=== PATIENT | male | born 1960 | race Caucasian/White ===

== ENCOUNTER 2017-04-10 23:14 | Inpatient (IN) | payer OTHER ==
[~2017-04-10] VITALS: Ht 172.7 cm; Wt 71.7 kg
[~2017-04-10 23:14] MED LIST: Z.0.NO CURRENT MEDS
[2017-04-10 23:17] VITALS: BP 141/81; PULSE 99; RESP 18; TEMP 98.2; O2SAT 92
[2017-04-10 23:56] VITALS: BP 140/87; RESP 14; O2SAT 87
[2017-04-11] VITALS (14 sets, daily range): BP systolic 115–140; BP diastolic 63–87; PULSE 80–101; RESP 14–18; TEMP 96.6–98.8; O2SAT 87–100
[2017-04-11] MEDS ORDERED: SODIUM CHLORIDE 0.9% FLUSH 10 ML FLUSH IVF PRN
[2017-04-11] MEDS ORDERED: methylPREDNISolone SOD SUCC 125 MG/2 ML VIAL IVP ONE
[2017-04-11] MEDS: RESP: ALBUTEROL 2.5 MG/IPRATROPIUM 0.5 MG NEB (SCH) INH ×2 (00:04→00:05)
--- NOTE | 2017-04-11 00:08 | PD ---
HPI Chief Complaint: Respiratory Symptoms Time Seen by Provider: 23:53 Travel History International Travel<30 days: No Contact w/Intl Traveler<30days: No Traveled to known affect area: No History of Present Illness HPI The patient is a 56-year-old male who presents to the emergency department for shortness of breath. The patient states he developed shortness of breath approximate 4 hours prior to arrival. The patient does have a history of remote lung cancer, approximately 12 years ago, that was treated on the [facility]. The patient had a partial right upper lobectomy and port placement at that time. The patient states he continues to smoke 2 packs of cigarettes per day. The patient states he has been short of breath for 4 hours, has some left-sided chest tightness, audible wheezing, but denies any new or productive cough. He denies any history of pulmonary embolism or DVT. The patient is currently staying with his brother who lives in the local area. He does not have a local primary physician. The patient states they were going to place him on oxygen in the past, however, he does not have home O2 or portable O2 canister. PFSH Past Medical History Asthma: No Blood Disorders: No Anxiety: Yes Heart Rhythm Problems: No Cancer: Yes (2006-TOLD HAS TERMINAL SMALL CELL LUNG CANCER, BUT REFUSED TREATMENT. ) Cardiovascular Problems: Yes High Cholesterol: No Chest Pain: No Congestive Heart Failure: No COPD: Yes Diabetes: No Diminished Hearing: No Endocrine: No Genitourinary: No Immune Disorder: No Implanted Vascular Access Dvce: Yes (PORT RCW.) Neurologic: No Psychiatric: Yes Reproductive: No Respiratory: Yes Immunizations Current: No Sleep Apnea: No Thyroid Disease: No Influenza Vaccination: No Past Surgical History Body Medical Devices: PORT RIGHT UPPER CHEST Thoracic Surgery: Yes (RUL LOBECTOMY 2005) Other Surgery: Yes (R+ lung remove, Inf port R side ) Social History Alcohol Use: Yes (every day licor and beers) Tobacco Use: Yes Substance Use: No Allergies-Medications (Allergen,Severity, Reaction): Coded Allergies: penicillin G (Unverified Allergy, Mild, 04/10/17) Reported Meds & Prescriptions Reported Meds & Active Scripts Active Reported No Current Meds (Miscellaneous Medication) Misc Review of Systems Except as stated in HPI: all other systems reviewed are Neg General / Constitutional: No: Fever HENT: No: Headaches Cardiovascular: Positive: Chest Pain or Discomfort (left-sided chest tightness) Respiratory: Positive: Shortness of Breath, Wheezing Gastrointestinal: No: Nausea, Vomiting, Abdominal Pain Musculoskeletal: No: Edema Neurologic: No: Dizziness Physical Exam Narrative GENERAL: Awake, alert, nontoxic-appearing 56-year-old male who appears his stated age and is in no acute respiratory distress. SKIN: Focused skin assessment warm/dry. HEAD: Atraumatic. Normocephalic. EYES: Left pupil is 3 mm and reactive. Blind in the right eye. ENT: No nasal bleeding or discharge. Poor dentition. Breath smells of alcohol. NECK: Trachea midline. No JVD. CARDIOVASCULAR: Regular rate and rhythm. No murmur appreciated. Heart rate in the 90s. Port in place right chest wall. RESPIRATORY: Mild tachypnea with a respiratory rate of 22. Diffuse wheezing with crackles in the left base. GASTROINTESTINAL: Abdomen soft, non-tender, nondistended. No rebound tenderness. Back: Well-healed scar over the right scapula. MUSCULOSKELETAL: No obvious deformities. No clubbing. No cyanosis. No edema. NEUROLOGICAL: Awake and alert. No obvious cranial nerve deficits. Motor grossly within normal limits. Normal speech. PSYCHIATRIC: Appropriate mood and affect; insight and judgment normal. Data Data Last Documented VS Vital Signs Date Time Temp Pulse Resp B/P (MAP) Pulse Ox O2 Delivery O2 Flow Rate FiO2 04/11/17 01:42 83 18 122/73 (89) 94 Nasal Cannula 3.00 04/10/17 23:17 98.2 Orders Orders Complete Blood Count With Diff (04/10/17 23:57) Comprehensive Metabolic Panel (04/10/17 23:57) B-Type Natriuretic Peptide (04/10/17 23:57) Magnesium (Mg) (04/10/17 23:57) Ckmb (Isoenzyme) Profile (04/10/17 23:57) Troponin I (04/10/17 23:57) Iv Access Insert/Monitor (04/10/17 23:57) Electrocardiogram (04/10/17 23:57) Ecg Monitoring (04/10/17 23:57) Oximetry (04/10/17 23:57) Oxygen Administration (04/10/17 23:57) Chest, Single Ap (04/10/17 23:57) Sodium Chloride 0.9% Flush (Ns Flush) (04/11/17 00:00) Methylprednisolone So Succ Inj (Solumedr (04/11/17 00:00) Albuterol-Ipratropium Neb (Duoneb Neb) (04/11/17 00:00) CKMB (04/11/17 00:05) CKMB% (04/11/17 00:05) Azithromycin (Zithromax) (04/11/17 01:45) Admit Order (Ed Use Only) (04/11/17 01:54) Labs Laboratory Tests Test 04/11/17 00:05 White Blood Count 7.0 TH/MM3 Red Blood Count 4.59 MIL/MM3 Hemoglobin 14.3 GM/DL Hematocrit 42.6 % Mean Corpuscular Volume 93.0 FL Mean Corpuscular Hemoglobin 31.2 PG Mean Corpuscular Hemoglobin Concent 33.5 % Red Cell Distribution Width 14.4 % Platelet Count 156 TH/MM3 Mean Platelet Volume 8.2 FL Neutrophils (%) (Auto) 44.5 % Lymphocytes (%) (Auto) 42.9 % Monocytes (%) (Auto) 9.7 % Eosinophils (%) (Auto) 1.9 % Basophils (%) (Auto) 1.0 % Neutrophils # (Auto) 3.1 TH/MM3 Lymphocytes # (Auto) 3.0 TH/MM3 Monocytes # (Auto) 0.7 TH/MM3 Eosinophils # (Auto) 0.1 TH/MM3 Basophils # (Auto) 0.1 TH/MM3 CBC Comment DIFF FINAL Differential Comment Blood Urea Nitrogen 10 MG/DL Creatinine 0.83 MG/DL Random Glucose 101 MG/DL Total Protein 7.7 GM/DL Albumin 4.1 GM/DL Calcium Level 8.9 MG/DL Magnesium Level 1.8 MG/DL Alkaline Phosphatase 75 U/L Aspartate Amino Transf (AST/SGOT) 102 U/L Alanine Aminotransferase (ALT/SGPT) 91 U/L Total Bilirubin 0.3 MG/DL Sodium Level 146 MEQ/L Potassium Level 4.2 MEQ/L Chloride Level 107 MEQ/L Carbon Dioxide Level 28.7 MEQ/L Anion Gap 10 MEQ/L Estimat Glomerular Filtration Rate 96 ML/MIN Total Creatine Kinase 144 U/L Creatine Kinase MB 1.7 NG/ML Troponin I LESS THAN 0.02 NG/ML B-Type Natriuretic Peptide 12 PG/ML MDM Medical Decision Making Medical Screen Exam Complete: Yes Emergency Medical Condition: Yes Medical Record Reviewed: Yes Interpretation(s) EKG reveals normal sinus rhythm with a rate 87. Q wave noted in lead V1 and V2. Last Impressions Chest X-Ray 04/10/17 [id number] Signed Impressions: Service Date/Time: Tuesday, April 11, 2017 00:14 - CONCLUSION: Normal examination. Tiago Cat MD Laboratory Tests Test 04/11/17 00:05 White Blood Count 7.0 TH/MM3 Red Blood Count 4.59 MIL/MM3 Hemoglobin 14.3 GM/DL Hematocrit 42.6 % Mean Corpuscular Volume 93.0 FL Mean Corpuscular Hemoglobin 31.2 PG Mean Corpuscular Hemoglobin Concent 33.5 % Red Cell Distribution Width 14.4 % Platelet Count 156 TH/MM3 Mean Platelet Volume 8.2 FL Neutrophils (%) (Auto) 44.5 % Lymphocytes (%) (Auto) 42.9 % Monocytes (%) (Auto) 9.7 % Eosinophils (%) (Auto) 1.9 % Basophils (%) (Auto) 1.0 % Neutrophils # (Auto) 3.1 TH/MM3 Lymphocytes # (Auto) 3.0 TH/MM3 Monocytes # (Auto) 0.7 TH/MM3 Eosinophils # (Auto) 0.1 TH/MM3 Basophils # (Auto) 0.1 TH/MM3 CBC Comment DIFF FINAL Differential Comment Blood Urea Nitrogen 10 MG/DL Creatinine 0.83 MG/DL Random Glucose 101 MG/DL Total Protein 7.7 GM/DL Albumin 4.1 GM/DL Calcium Level 8.9 MG/DL Magnesium Level 1.8 MG/DL Alkaline Phosphatase 75 U/L Aspartate Amino Transf (AST/SGOT) 102 U/L Alanine Aminotransferase (ALT/SGPT) 91 U/L Total Bilirubin 0.3 MG/DL Sodium Level 146 MEQ/L Potassium Level 4.2 MEQ/L Chloride Level 107 MEQ/L Carbon Dioxide Level 28.7 MEQ/L Anion Gap 10 MEQ/L Estimat Glomerular Filtration Rate 96 ML/MIN Total Creatine Kinase 144 U/L Creatine Kinase MB 1.7 NG/ML Troponin I LESS THAN 0.02 NG/ML B-Type Natriuretic Peptide 12 PG/ML Differential Diagnosis Differential diagnosis includes COPD exacerbation, pneumonia, bronchitis, pleural effusion, pulmonary embolism, pericardial effusion, acute coronary syndrome, noncompliance. Narrative Course IV was established, labs are drawn and sent, and the patient was placed on cardiac telemetry monitoring and continuous pulse oximetry monitoring. The patient was noted to have an initial O2 saturation on room air of 86-87%. The patient was placed on oxygen via nasal cannula. The patient was administered Solu-Medrol 125 mg intravenously and duo nebs 3. Chest x-ray was obtained. EKG was ordered and interpreted. Chest x-rays unremarkable. Laboratory evaluation is essentially unremarkable except for mildly elevated AST and ALT. The patient continued to sat at 94% on 3 L, he did have mild improvement with DuoNeb's. The patient does not have a primary physician and was hypoxic, therefore, will be admitted for COPD exacerbation. The on-call medical team was paged for admission. Physician Communication Physician Communication The on-call medical service was paged for admission. I discussed the patient with Dr. Summers who agrees with admission. Diagnosis Primary Impression: COPD exacerbation Additional Impression: Hypoxia Admitting Information Admitting Physician Requests: Admit Condition: Stable Jonny Gomez MD Apr 11, 2017 00:08
[2017-04-11 00:16] LABS: AUTOMATED NEUTROPHIL # 3.1 TH/MM3 (1.8-7.7); BASOPHIL # 0.1 TH/MM3 (0-0.2); EOSINOPHIL # 0.1 TH/MM3 (0-0.4); EOSINOPHIL % 1.9 % (0.0-4.0); HEMATOCRIT 42.6 % (39.0-51.0); HEMO FLAGS DIFF FINAL; LYMPH % 42.9 % (9.0-44.0); MEAN CORPUSCULAR HEMOGLOBIN 31.2 PG (27.0-34.0); MEAN CORPUSCULAR HGB CONC 33.5 % (32.0-36.0); MONO % 9.7 % (0.0-8.0); NEUT % 44.5 % (16.0-70.0); PLATELET COUNT 156 TH/MM3 (150-450); RED BLOOD COUNT 4.59 MIL/MM3 (4.50-5.90); RED CELL DISTRIBUTION WIDTH 14.4 % (11.6-17.2)
--- NOTE | 2017-04-11 00:25 | RADRPT ---
EXAM DATE/TIME: 04/11/2017 00:14 [facility] COMPARISON: No previous studies available for comparison. INDICATIONS : Shortness of breath MEDICAL HISTORY : Chronic obstructive pulmonary disease. Carcinoma, squamous cell. SURGICAL HISTORY : Port placement, RUL lobectomy ENCOUNTER: Initial ACUITY: 1 day PAIN SCORE: 8/10 LOCATION: Bilateral chest FINDINGS: A single view of the chest demonstrates the lungs to be symmetrically aerated without evidence of mas s, infiltrate or effusion. Right subclavian central line is in good position. The cardiomediastina l contours are unremarkable. Osseous structures are intact. CONCLUSION: Normal examination. Tiago Cat MD on April 11, 2017 at 0:23 Board Certified Radiologist. This report was verified electronically.
[2017-04-11 00:32] LABS: ALT (GPT) 91 U/L (12-78); ANION GAP 10 MEQ/L (5-15); AST (GOT) 102 U/L (15-37); BICARBONATE 28.7 MEQ/L (21.0-32.0); BLOOD UREA NITROGEN 10 MG/DL (7-18); CHLORIDE 107 MEQ/L (98-107); GLOMERULAR FILTRATION RATE 96 ML/MIN (>89); MAGNESIUM 1.8 MG/DL (1.5-2.5); POTASSIUM 4.2 MEQ/L (3.5-5.1); SODIUM (NA) 146 MEQ/L (136-145)
[2017-04-11 00:36] LABS: ALKALINE PHOSPHATASE 75 U/L (45-117); CREATINE KINASE 144 U/L (39-308); TOTAL BILIRUBIN ADULT 0.3 MG/DL (0.2-1.0)
[2017-04-11 00:48] LABS: CKMB 1.7 NG/ML (0.5-3.6)
[2017-04-11] MEDS ORDERED: AZITHROMYCIN 250 MG TAB PO ONE (01:45)
[2017-04-11] MEDS ORDERED: NALOXONE HCL 0.4 MG/ML AMP IV PRN (02:00)
[2017-04-11] MEDS ORDERED: RESP: ALBUTEROL 2.5 MG/IPRATROPIUM 0.5 MG NEB (PRN) NEB (03:30)
[2017-04-11] MEDS: MORPHINE SULFATE 4 MG/ML INJ IV PUSH PRN ×2 (03:32→08:31)
[2017-04-11] MEDS: RESP: ALBUTEROL 2.5 MG/IPRATROPIUM 0.5 MG NEB (SCH) NEB ×4 (03:39→22:16)
[2017-04-11 07:26] LABS: CREATINE KINASE 119 U/L (39-308)
[2017-04-11] MEDS: methylPREDNISolone SOD SUCC 40 MG/1 ML VIAL IV PUSH SCH ×3 (08:30→23:04)
[2017-04-11] MEDS: SODIUM CHLORIDE 0.9% FLUSH 10 ML FLUSH IV FLUSH SCH ×2 (08:30→20:00)
[2017-04-11] MEDS ORDERED: LORazepam 2 MG/ML VIAL IV PUSH PRN ×2 (09:15)
[2017-04-11] MEDS ORDERED: cloNIDine HCL 0.1 MG TAB PO PRN (09:15)
[2017-04-11] MEDS ORDERED: FLUMAZENIL 0.5 MG/5 ML VIAL IV PUSH PRN (09:15)
[2017-04-11] MEDS: LORazepam 1 MG TAB PO PRN ×2 (09:39→17:43)
--- NOTE | 2017-04-11 10:02 | HHI.HP ---
[facility] Service [facility] Primary Care Physician Unknown Admission Diagnosis COPD exacerbation, hypoxia Diagnoses: Chief Complaint: Shortness of breath Travel History International Travel<30 Days: No Contact w/Intl Traveler <30 Da: No Traveled to Known Affected Are: No History of Present Illness Written by Tyron Gooden, acting as scribe for Dr. Allen on 04/11/17 at 10:02. 56-year-old male with past medical history of lung cancer status post partial lobectomy who presented for shortness of breath. The patient states that yesterday he had sudden onset of shortness of breath that persisted for about 4 hours which prompted him to come to the ED. He had associated chest pressure like a heavy feeling on his chest. Pain is left-sided, no radiation. He had associated sweating. The pain is improved with morphine. He has not had any recent prolonged immobilization or travel. He continues to have pain and difficulty breathing when he breathes deeply. He denies any heart disease. He states he had a stress test 4 months ago at [facility] and that was okay. He continues to smoke 2 packs per day. He drinks alcohol daily. He has a history of lung cancer in the past that he refused chemotherapy and radiation and was treated with partial right lobectomy. Review of Systems Except as stated in HPI: all other systems reviewed are Neg Past Family Social History Past Medical History History of lung cancer Past Surgical History Right upper lung lobectomy Head and facial surgery status post trauma Reported Medications None Allergies: Coded Allergies: penicillin G (Unverified Allergy, Mild, 04/10/17) Active Ordered Medications Current Medications Medications (Trade) Dose Ordered Sig/[place]ubna Route Start Time Stop Time Status Last Admin (NS Flush) 2 ml UNSCH PRN IV FLUSH 04/11/17 02:00 (NS Flush) 2 ml BID IV FLUSH 04/11/17 09:00 04/11/17 08:30 (Narcan Inj) 0.4 mg UNSCH PRN IV 04/11/17 02:00 (Morphine Inj) 2 mg Q3H PRN IV PUSH 04/11/17 03:30 04/11/17 08:31 (Duoneb Neb) 1 ampule Q6HR NEB NEB 04/11/17 04:00 04/11/17 10:19 (Duoneb Neb) 1 ampule Q2HR NEB PRN NEB 04/11/17 03:30 (SoluMEDROL INJ) 40 mg Q8HR IV PUSH 04/11/17 07:45 04/11/17 08:30 (Folate) 1 mg DAILY PO 04/12/17 09:00 04/17/17 08:59 (Vitamin B1) 100 mg DAILY PO 04/12/17 09:00 (Theragran M Tab) 1 tab DAILY PO 04/12/17 09:00 04/17/17 08:59 (Catapres) 0.1 mg Q6H PRN PO 04/11/17 09:15 (Romazicon Inj) 0.2 mg Q1M PRN IV PUSH 04/11/17 09:15 (Ativan) 1 mg Q4H PRN PO 04/11/17 09:15 04/11/17 09:39 (Ativan) 2 mg Q2H PRN PO 04/11/17 09:15 (Ativan Inj) 2 mg Q1H PRN IV PUSH 04/11/17 09:15 (Ativan Inj) 2 mg Q15M PRN IV PUSH 04/11/17 09:15 Family History Father had heart disease Social History Assessment 2 packs per day since age 15 Drinks a quart of liquor and a few beers daily Works as a captain waiter Physical Exam Vital Signs Vital Signs Date Time Temp Pulse Resp B/P (MAP) Pulse Ox O2 Delivery O2 Flow Rate FiO2 04/11/17 07:52 98.1 82 18 115/63 (80) 95 04/11/17 04:33 85 04/11/17 04:00 96.6 81 17 133/80 (97) 91 04/11/17 03:42 94 Nasal Cannula 3.00 04/11/17 03:40 18 04/11/17 02:37 94 Nasal Cannula 3.00 04/11/17 02:08 91 Nasal Cannula 4.00 04/11/17 01:42 83 18 122/73 (89) 94 Nasal Cannula 3.00 04/11/17 00:04 80 14 140/87 (104) 87 Nasal Cannula 04/11/17 00:04 Nasal Cannula 3.00 04/10/17 23:56 14 140/87 (104) 87 Room Air 04/10/17 23:17 98.2 99 18 141/81 (101) 92 Room Air Physical Exam GENERAL: Well-developed well-nourished. In no acute distress. SKIN: Warm and dry. No lesions noted. HEENT: Normocephalic. Right eye blindness. Mucous membranes pink and moist. CARDIOVASCULAR: Regular rate and rhythm. No murmur appreciated. RESPIRATORY: No accessory muscle use. Clear to auscultation. Left basilar rhonchi. Right upper lobe breath sounds diminished. GASTROINTESTINAL: Abdomen soft, non-tender, nondistended. Bowel sounds x4. MUSCULOSKELETAL: No obvious deformities. No clubbing or cyanosis. No edema. NEUROLOGICAL: Awake and alert. No focal neurological deficits. Moves upper and lower extremities spontaneously. Normal speech. Mildly tremulous. PSYCHIATRIC: Appropriate mood and affect; insight and judgment normal. Laboratory Laboratory Tests Test 04/11/17 00:05 04/11/17 06:10 White Blood Count 7.0 Red Blood Count 4.59 Hemoglobin 14.3 Hematocrit 42.6 Mean Corpuscular Volume 93.0 Mean Corpuscular Hemoglobin 31.2 Mean Corpuscular Hemoglobin Concent 33.5 Red Cell Distribution Width 14.4 Platelet Count 156 Mean Platelet Volume 8.2 Neutrophils (%) (Auto) 44.5 Lymphocytes (%) (Auto) 42.9 Monocytes (%) (Auto) 9.7 Eosinophils (%) (Auto) 1.9 Basophils (%) (Auto) 1.0 Neutrophils # (Auto) 3.1 Lymphocytes # (Auto) 3.0 Monocytes # (Auto) 0.7 Eosinophils # (Auto) 0.1 Basophils # (Auto) 0.1 CBC Comment DIFF FINAL Differential Comment Blood Urea Nitrogen 10 Creatinine 0.83 Random Glucose 101 Total Protein 7.7 Albumin 4.1 Calcium Level 8.9 Magnesium Level 1.8 Alkaline Phosphatase 75 Aspartate Amino Transf (AST/SGOT) 102 Alanine Aminotransferase (ALT/SGPT) 91 Total Bilirubin 0.3 Sodium Level 146 Potassium Level 4.2 Chloride Level 107 Carbon Dioxide Level 28.7 Anion Gap 10 Estimat Glomerular Filtration Rate 96 Total Creatine Kinase 144 119 Creatine Kinase MB 1.7 Troponin I LESS THAN 0.02 LESS THAN 0.02 B-Type Natriuretic Peptide 12 Result Diagram: 04/11/17 0005 04/11/17 0005 Imaging Last Impressions Chest X-Ray 04/10/17 [id number] Signed Impressions: Service Date/Time: Tuesday, April 11, 2017 00:14 - CONCLUSION: Normal examination. MD Katelynn Bearden VTE Risk Assessment Katelynn VTE Risk Assessment: Mod/High Risk (score >= 2) Caprini Risk Assessment Model Point Value = 1 Point Value = 2 Point Value = 3 Point Value = 5 Age 41-60 Minor surgery BMI > 25 kg/m2 Swollen legs Varicose veins or History of unexplained or recurrent spontaneous Oral contraceptives or hormone replacement Sepsis (< 1 month) Serious lung disease, including pneumonia (< 1 month) Abnormal pulmonary function Acute myocardial infarction Congestive heart failure (< 1 month) History of inflammatory bowel disease Medical patient at bed rest Age 61-74 Arthroscopic surgery Major open surgery (> 45 min) Laparoscopic surgery (> 45 min) Malignancy Confined to bed (> 72 hours) Immobilizing plaster cast Central venous access Age >= 75 History of VTE Family history of VTE Factor V Leiden Prothrombin [id number] Lupus anticoagulant Anticardiolipin antibodies Elevated serum homocysteine Heparin-induced thrombocytopenia Other congenital or acquired thrombophilia Stroke (< 1 month) Elective arthroplasty Hip, pelvis, or leg fracture Acute spinal cord injury (< 1 month) Prophylaxis Regimen Total Risk Factor Score Risk Level Prophylaxis Regimen 0-1 Low Early ambulation 2 Moderate Order ONE of the following: *Sequential Compression Device (SCD) *Heparin 5000 units SQ BID 3-4 Higher Order ONE of the following medications: *Heparin 5000 units SQ TID *Enoxaparin/Lovenox 40 mg SQ daily (WT < 150 kg, CrCl > 30 mL/min) *Enoxaparin/Lovenox 30 mg SQ daily (WT < 150 kg, CrCl > 10-29 mL/min) *Enoxaparin/Lovenox 30 mg SQ BID (WT < 150 kg, CrCl > 30 mL/min) AND/OR *Sequential Compression Device (SCD) 5 or more Highest Order ONE of the following medications: *Heparin 5000 units SQ TID (Preferred with Epidurals) *Enoxaparin/Lovenox 40 mg SQ daily (WT < 150 kg, CrCl > 30 mL/min) *Enoxaparin/Lovenox 30 mg SQ daily (WT < 150 kg, CrCl > 10-29 mL/min) *Enoxaparin/Lovenox 30 mg SQ BID (WT < 150 kg, CrCl > 30 mL/min) AND *Sequential Compression Device (SCD) Assessment and Plan Assessment and Plan 56-year-old male with past medical history of lung cancer status post partial lobectomy who presented for shortness of breath Chest pain/shortness of breath: Differential includes ACS, PE, COPD, recurrent cancer Reviewed: Troponin negative 2. EKG with NSR, nonspecific ST changes. Chest x- ray clear. BNP 12. -Check CT pulmonary angiogram -Continue to trend troponins -IV Solu-Medrol -Scheduled and as needed nebs -Supplemental O2 as needed -Counseled on tobacco cessation Alcohol abuse: Counseled extensively on cessation, no desire to quit. Mild elevation of AST and ALT likely secondary to EtOH abuse. -METHODIST JENNIE EDMUNDSON protocol. Thiamine, folate, multivitamins. DVT prophylaxis: Lovenox This note was transcribed by scribe [Giacomo Ackerman]. I, Dr. Yue Allen personally performed the history, physical exam, and medical decision making; and confirmed the accuracy of the information in the transcribed note. Authenticated by Dr. Yue Allen on 04/11/17 at 10:03. Code Status DO NOT RESUSCITATE Discussed Condition With Patient, Tyron Cifuentes Apr 11, 2017 10:02 Yue Allen MD Apr 11, 2017 10:03
[2017-04-11] MEDS ORDERED: IOHEXOL 350 MG/ML 10 ML VIAL (for RAD DIAG) IVCONTRAST ONE (10:52)
--- NOTE | 2017-04-11 11:08 | RADRPT ---
EXAM DATE/TIME: 04/11/2017 10:35 [facility] COMPARISON: No previous studies available for comparison. INDICATIONS : Sudden onset of shortness of breath with history of lung cancer. IV CONTRAST: 50 cc Omnipaque 350 (iohexol) IV RADIATION DOSE: 8.5 CTDIvol (mGy) MEDICAL HISTORY : Carcinoma, lung. Cardiovascular disease Chronic obstructive pulmonary disease. SURGICAL HISTORY : Lobectomy. ENCOUNTER: Initial ACUITY: 1 day PAIN SCALE: 0/10 LOCATION: chest TECHNIQUE: Volumetric scanning of the chest was performed using a pulmonary embolism protocol MIP images were re constructed. Using automated exposure control and adjustment of the mA and/or kV according to patien t size, radiation dose was kept as low as reasonably achievable to obtain optimal diagnostic quality images. DICOM format image data is available electronically for review and comparison. Follow-up recommendations for detected pulmonary nodules are based at a minimum on nodule size and pa tient risk factors according to Fleischner Society Guidelines. FINDINGS: Examination quality is degraded by respiratory motion artifact. PULMONARY ARTERIES: No filling defects are seen in the pulmonary arteries through the segmental level. LUNGS: There is atelectasis in the left lower lobe. In the medial right midlung zone there is volume loss ad jacent to a staple line. PLEURAE: There is no pleural thickening or pleural effusion. MEDIASTINUM: Heart and great vessels demonstrate no acute finding. There is coronary artery calcification and athe rosclerotic disease of aorta. No lymphadenopathy is visualized. MUSCULOSKELETAL: There are degenerative changes of the thoracic spine. MISCELLANEOUS: The visualized upper abdominal organs demonstrate no acute abnormality. Moderate-sized hiatal hernia is present. CONCLUSION: 1. Examination quality degraded by respiratory motion artifact. However, no PE is identified. 2. Postsurgical changes in the right hemithorax and atelectasis in the left lower lobe. 3. Nonacute findings include moderate size hiatal hernia and coronary artery calcification. Edilson Wells MD on April 11, 2017 at 11:02 Board Certified Radiologist. This report was verified electronically.
--- NOTE | 2017-04-11 11:47 | EKG ---
Date Performed: 04/11/2017 Time Performed: 00:02:36 PTAGE: 56 years EKG: Sinus rhythm Consider anteroseptal myocardial infarction - age indeterminate ABNORMAL ECG PREVIOUS TRACING : 03/14/2011 16.59 DOCTOR: Jey Moralez Interpretating Date/Time 04/11/2017 11:43:28
--- NOTE | 2017-04-11 11:48 | EKG ---
Date Performed: 04/11/2017 Time Performed: 05:35:09 PTAGE: 56 years EKG: Sinus rhythm Nonspecific ST-T wave changes PREVIOUS TRACING : 04/11/2017 00.02 DOCTOR: Jey Moralez Interpretating Date/Time 04/11/2017 11:43:56
[2017-04-11 12:45] LABS: CREATINE KINASE 108 U/L (39-308)
[2017-04-11] MEDS: ENOXAPARIN SODIUM 40 MG/0.4 ML SYRINGE SQ SCH (14:05)
[2017-04-11] MEDS ORDERED: guaiFENesin/CODEINE SYRUP 200 MG/20 MG/10 ML CUP PO ONE (15:15)
[2017-04-11] MEDS: SODIUM CHLORIDE 0.9% FLUSH 10 ML FLUSH IV FLUSH PRN (23:04)
[2017-04-12] VITALS (10 sets, daily range): BP systolic 103–151; BP diastolic 62–89; PULSE 57–99; RESP 16–20; TEMP 96.9–98.6; O2SAT 90–100
[2017-04-12] MEDS: guaiFENesin/CODEINE SYRUP 200 MG/20 MG/10 ML CUP PO PRN (00:41)
[2017-04-12] MEDS: LORazepam 1 MG TAB PO PRN ×3 (00:41→12:54)
[2017-04-12] MEDS: RESP: ALBUTEROL 2.5 MG/IPRATROPIUM 0.5 MG NEB (SCH) NEB ×4 (04:16→23:02)
[2017-04-12] MEDS: methylPREDNISolone SOD SUCC 40 MG/1 ML VIAL IV PUSH SCH ×3 (05:38→23:00)
[2017-04-12] MEDS: SODIUM CHLORIDE 0.9% FLUSH 10 ML FLUSH IV FLUSH PRN (05:38)
[2017-04-12 08:44] LABS: HEMATOCRIT 43.4 % (39.0-51.0); HEMO FLAGS DIFF FINAL; LYMPH % 3.3 % (9.0-44.0); LYMPHOCYTE # 0.5 TH/MM3 (1.0-4.8); MEAN CORPUSCULAR HEMOGLOBIN 30.6 PG (27.0-34.0); MEAN CORPUSCULAR HGB CONC 32.6 % (32.0-36.0); MONO % 2.8 % (0.0-8.0); NEUT % 93.9 % (16.0-70.0); PLATELET COUNT 151 TH/MM3 (150-450); RED BLOOD COUNT 4.62 MIL/MM3 (4.50-5.90); RED CELL DISTRIBUTION WIDTH 14.4 % (11.6-17.2); WHITE BLOOD COUNT 13.9 TH/MM3 (4.0-11.0)
[2017-04-12 08:54] LABS: BICARBONATE 28.6 MEQ/L (21.0-32.0)
[2017-04-12] MEDS: SODIUM CHLORIDE 0.9% FLUSH 10 ML FLUSH IV FLUSH SCH ×2 (09:00→22:59)
[2017-04-12] MEDS ORDERED: INFLUENZA VIRUS VACCINE (QUADRIVALENT) 0.5 ML SYR IM ONE (10:00)
[2017-04-12] MEDS: MULTIVITAMINS/MINERALS THERAPEUTIC TAB PO SCH (10:03)
[2017-04-12] MEDS: LORazepam 2 MG TAB PO PRN ×2 (10:03→16:36)
[2017-04-12] MEDS: FOLIC ACID 1 MG TAB PO SCH (10:03)
[2017-04-12] MEDS: THIAMINE HCL 100 MG TAB PO SCH (10:03)
[2017-04-12] MEDS: ENOXAPARIN SODIUM 40 MG/0.4 ML SYRINGE SQ SCH (12:51)
--- NOTE | 2017-04-12 13:20 | HHI.PR ---
Subjective Remarks Patient has been having coughing spells and has been unable to do a nuclear stress test. He reports that chest pain is mild. He is now tremulous and actively withdrawing. Objective Vitals Vital Signs Date Time Temp Pulse Resp B/P (MAP) Pulse Ox O2 Delivery O2 Flow Rate FiO2 04/12/17 12:00 97.7 91 17 151/89 (109) 94 04/12/17 09:51 90 Nasal Cannula 3.00 04/12/17 08:00 98.2 68 16 125/77 (93) 94 04/12/17 05:48 98.4 71 20 122/65 (84) 93 04/12/17 04:16 93 Nasal Cannula 3.00 04/12/17 00:00 96.9 90 18 143/78 (99) 100 04/11/17 22:16 92 Nasal Cannula 3.00 04/11/17 21:47 96.8 89 18 138/76 (96) 100 04/11/17 19:50 98.8 88 16 139/69 (92) 92 04/11/17 19:43 85 04/11/17 15:31 98.5 98 16 134/81 (98) 93 I/O 04/11/17 04/11/17 04/11/17 04/12/17 04/12/17 04/12/17 06:59 14:59 22:59 06:59 14:59 22:59 Output Total 400 ml Balance -400 ml Output Urine Total 400 ml Result Diagram: 04/12/17 0724 04/12/17 [address] Angiography 04/11/17 0000 Signed Impressions: Service Date/Time: Tuesday, April 11, 2017 10:35 - CONCLUSION: 1. Examination quality degraded by respiratory motion artifact. However, no PE is identified. 2. Postsurgical changes in the right hemithorax and atelectasis in the left lower lobe. 3. Nonacute findings include moderate size hiatal hernia and coronary artery calcification. Edilson Wells MD Chest X-Ray 04/10/17 [id number] Signed Impressions: Service Date/Time: Tuesday, April 11, 2017 00:14 - CONCLUSION: Normal examination. Tiago Cat MD Objective Remarks GENERAL: Patient appearing older than stated age. CARDIOVASCULAR: Normal rate and regular rhythm without murmurs, gallops, or rubs. RESPIRATORY: Diminished breath sounds bilaterally. Diffuse rhonchi throughout. GASTROINTESTINAL: Abdomen soft, non-tender, non-distended. Normal active bowel sounds MUSCULOSKELETAL: Extremities without cyanosis, or edema. NEURO: Alert & Oriented x4 to person, place, time, situation. Moves all ext x4. Tremulous. PSYCH: Anxious. A/P Assessment and Plan 56-year-old male with past medical history of lung cancer status post partial lobectomy who presented for shortness of breath. Likely COPD exacerbation. Chest pain/shortness of breath: Differential includes ACS, PE, COPD, recurrent cancer Reviewed: Troponin negative 2. EKG with NSR, nonspecific ST changes. Chest x- ray clear. BNP 12. -CT pulmonary angiogram negative for PE. Cardiac enzymes unremarkable. -Treated as COPD exacerbation. Plan to obtain nuclear stress tests to rule out cardiac etiology once the patient is more stable and not coughing as much. COPD exacerbation: -Continue IV Solu-Medrol -Scheduled and as needed nebs -Supplemental O2 as needed -Counseled on tobacco cessation Alcohol abuse: Counseled extensively on cessation, no desire to quit. Mild elevation of AST and ALT likely secondary to EtOH abuse. -[facility] protocol. Thiamine, folate, multivitamins. - Add scheduled Librium 25 mg 3 times a day. DVT prophylaxis: Yue Luke MD Apr 12, 2017 13:20
--- NOTE | 2017-04-12 18:29 | EKG ---
Date Performed: 04/11/2017 Time Performed: 18:15:00 PTAGE: 56 years EKG: Sinus rhythm MODERATE T-WAVE ABNORMALITY ABNORMAL ECG PREVIOUS TRACING : 04/11/2017 14.53 Compared to prior tracing no significant change DOCTOR: Sandy Torres Interpretating Date/Time 04/12/2017 18:28:41
[2017-04-12] MEDS: chlordiazePOXIDE 25 MG CAP PO PRN (18:33)
--- NOTE | 2017-04-12 18:37 | EKG ---
Date Performed: 04/11/2017 Time Performed: 14:53:25 PTAGE: 56 years EKG: Sinus rhythm NONSPECIFIC T-WAVE ABNORMALITY BORDERLINE ECG PREVIOUS TRACING : 04/11/2017 12.03 Compared to prior tracing no significant change DOCTOR: Sandy Torres Interpretating Date/Time 04/12/2017 18:35:49
--- NOTE | 2017-04-12 18:44 | EKG ---
Date Performed: 04/11/2017 Time Performed: 12:03:31 PTAGE: 56 years EKG: Sinus rhythm NONSPECIFIC T-WAVE ABNORMALITY BORDERLINE ECG PREVIOUS TRACING : 04/11/2017 05.35 Compared to prior tracing no significant change DOCTOR: Sandy Torres Interpretating Date/Time 04/12/2017 18:43:26
[2017-04-12] MEDS: MORPHINE SULFATE 4 MG/ML INJ IV PUSH PRN (23:00)
[2017-04-13] VITALS (8 sets, daily range): BP systolic 116–138; BP diastolic 60–83; PULSE 63–89; RESP 17–18; TEMP 95.6–98.6; O2SAT 92–100
[2017-04-13] MEDS: RESP: ALBUTEROL 2.5 MG/IPRATROPIUM 0.5 MG NEB (SCH) NEB ×2 (04:06→21:01)
[2017-04-13] MEDS: methylPREDNISolone SOD SUCC 40 MG/1 ML VIAL IV PUSH SCH ×3 (05:11→22:12)
[2017-04-13] MEDS: chlordiazePOXIDE 25 MG CAP PO PRN (05:11)
[2017-04-13] MEDS: SODIUM CHLORIDE 0.9% FLUSH 10 ML FLUSH IV FLUSH SCH ×2 (09:00→22:11)
[2017-04-13] MEDS: THIAMINE HCL 100 MG TAB PO SCH (09:25)
[2017-04-13] MEDS: FOLIC ACID 1 MG TAB PO SCH (09:25)
[2017-04-13] MEDS: MULTIVITAMINS/MINERALS THERAPEUTIC TAB PO SCH (09:25)
[2017-04-13] MEDS: ENOXAPARIN SODIUM 40 MG/0.4 ML SYRINGE SQ SCH (11:21)
[2017-04-13] MEDS: LORazepam 2 MG TAB PO PRN (11:22)
--- NOTE | 2017-04-13 14:41 | HHI.PR ---
Subjective Remarks Patient is very tremulous. States he has some shortness of breath and chest discomfort with deep breathing. Objective Vitals Vital Signs Date Time Temp Pulse Resp B/P (MAP) Pulse Ox O2 Delivery O2 Flow Rate FiO2 04/13/17 12:00 97.6 67 17 138/83 (101) 94 04/13/17 08:00 98.0 63 17 116/60 (78) 92 04/13/17 07:00 74 04/13/17 04:02 98.6 89 18 134/67 (89) 100 04/13/17 00:42 95.6 73 18 135/79 (97) 100 04/12/17 23:03 92 Nasal Cannula 3.00 04/12/17 23:00 73 04/12/17 21:11 98.6 99 18 128/72 (90) 100 04/12/17 16:00 98.6 57 16 103/62 (76) 95 I/O 04/12/17 04/12/17 04/12/17 04/13/17 04/13/17 04/13/17 06:59 14:59 22:59 06:59 14:59 22:59 Output Total 400 ml 425 ml Balance -400 ml -425 ml Output Urine Total 400 ml 425 ml # Voids 0 4 Result Diagram: 04/12/1772304/12/17723 Objective Remarks GENERAL: Patient appearing older than stated age. CARDIOVASCULAR: Normal rate and regular rhythm without murmurs, gallops, or rubs. RESPIRATORY: Diminished breath sounds bilaterally. Diffuse rhonchi throughout. GASTROINTESTINAL: Abdomen soft, non-tender, non-distended. Normal active bowel sounds MUSCULOSKELETAL: Extremities without cyanosis, or edema. NEURO: Alert & Oriented x4 to person, place, time, situation. Moves all ext x4. Tremulous. PSYCH: Anxious. A/P Assessment and Plan 56-year-old male with past medical history of lung cancer status post partial lobectomy who presented for shortness of breath. Likely COPD exacerbation. Chest pain/shortness of breath: Differential includes ACS, PE, COPD, recurrent cancer Reviewed: Troponin negative 2. EKG with NSR, nonspecific ST changes. Chest x- ray clear. BNP 12. -CT pulmonary angiogram negative for PE. Cardiac enzymes unremarkable. -Treated as COPD exacerbation. Plan to obtain nuclear stress tests to rule out cardiac etiology. Will plan to obtain this in the morning. COPD exacerbation: -Continue IV Solu-Medrol -Scheduled and as needed nebs -Supplemental O2 as needed -Counseled on tobacco cessation Alcohol abuse: Counseled extensively on cessation, no desire to quit. Mild elevation of AST and ALT likely secondary to EtOH abuse. -[facility] protocol. Thiamine, folate, multivitamins. - Added Librium 25 mg 3 times a day. DVT prophylaxis: Lovenox Discharge Planning Pending improvement. Yue Allen MD Apr 13, 2017 2:41 pm
[2017-04-13] MEDS: guaiFENesin/CODEINE SYRUP 200 MG/20 MG/10 ML CUP PO PRN (22:11)
[2017-04-13] MEDS: MORPHINE SULFATE 4 MG/ML INJ IV PUSH PRN (22:12)
[2017-04-14] VITALS: BP 133/80; PULSE 67; RESP 20; TEMP 98.2; O2SAT 92
[2017-04-14 04:00] VITALS: BP 121/77; PULSE 67; RESP 20; TEMP 97.5; O2SAT 91
[2017-04-14] MEDS: RESP: ALBUTEROL 2.5 MG/IPRATROPIUM 0.5 MG NEB (SCH) NEB ×2 (04:55→10:00)
[2017-04-14] MEDS: methylPREDNISolone SOD SUCC 40 MG/1 ML VIAL IV PUSH SCH (06:11)
[2017-04-14] MEDS: MORPHINE SULFATE 4 MG/ML INJ IV PUSH PRN (06:12)
[2017-04-14 08:42] VITALS: BP 150/94; PULSE 76; RESP 20; TEMP 98.3; O2SAT 94
--- NOTE | 2017-04-14 11:12 | HHI.DS ---
Discharge Summary Admission Date Apr 11, 2017 at 01:56 Discharge Date: Apr 14, 2017 Admitting Diagnosis COPD exacerbation, hypoxia (1) Chest pain ICD Code: R07.9 - Chest pain, unspecified (2) COPD exacerbation ICD Code: J44.1 - Chronic obstructive pulmonary disease with (acute) exacerbation (3) Alcohol withdrawal ICD Code: F10.239 - Alcohol dependence with withdrawal, unspecified Procedures None Brief History - From Admission 56-year-old male with past medical history of lung cancer status post partial lobectomy who presented for shortness of breath. The patient states that yesterday he had sudden onset of shortness of breath that persisted for about 4 hours which prompted him to come to the ED. He had associated chest pressure like a heavy feeling on his chest. Pain is left-sided, no radiation. He had associated sweating. The pain is improved with morphine. He has not had any recent prolonged immobilization or travel. He continues to have pain and difficulty breathing when he breathes deeply. He denies any heart disease. He states he had a stress test 4 months ago at [facility] and that was okay. He continues to smoke 2 packs per day. He drinks alcohol daily. He has a history of lung cancer in the past that he refused chemotherapy and radiation and was treated with partial right lobectomy. CBC/BMP: 04/12/17 0724 04/12/17 0724 Significant Findings Laboratory Tests Test 04/11/17 11:38 04/12/17 07:24 Troponin I LESS THAN 0.02 NG/ML White Blood Count 13.9 TH/MM3 (4.0-11.0) Neutrophils (%) (Auto) 93.9 % (16.0-70.0) Lymphocytes (%) (Auto) 3.3 % (9.0-44.0) Neutrophils # (Auto) 13.0 TH/MM3 (1.8-7.7) Lymphocytes # (Auto) 0.5 TH/MM3 (1.0-4.8) Random Glucose 153 MG/DL (74-106) Imaging Last Impressions CT Angiography 04/11/17 0000 Signed Impressions: Service Date/Time: Tuesday, April 11, 2017 10:35 - CONCLUSION: 1. Examination quality degraded by respiratory motion artifact. However, no PE is identified. 2. Postsurgical changes in the right hemithorax and atelectasis in the left lower lobe. 3. Nonacute findings include moderate size hiatal hernia and coronary artery calcification. Edilson Wells MD Chest X-Ray 04/10/17 [id number] Signed Impressions: Service Date/Time: Tuesday, April 11, 2017 00:14 - CONCLUSION: Normal examination. Tiago Cat MD PE at Discharge PT left AMA Pt update on day of discharge Unfortunately I was notified by RN the patient left A Hospital Course 56-year-old male with past medical history of lung cancer status post partial lobectomy who presented for shortness of breath. Likely COPD exacerbation. Patient was getting treatment for COPD exacerbation with IV Solu-Medrol and breathing treatments. He also complained of chest pain and there was plan for nuclear stress tests which she has been unable to do due to spasmodic cough. He does rule out to alcohol withdrawal and was being treated per [facility] protocol. Unfortunately the patient left the hospital AGAINST MEDICAL ADVICE without completing workup or treatment.. Pt Condition on Discharge: Fair Discharge Disposition: Discharge Home Discharge Time: <= 30 minutes Yue Allen MD Apr 14, 2017 11:12
== END 2017-04-14 10:24 | disposition left against medical advice (07) | DRG 192 ==
LOC: NEPC 23:14 → NEDA 04-11 01:56 → NEPGCP 04-11 02:48 → N05B 04-11 20:38
PROVIDERS: ADMIT Family Medicine; ATTEND Family Medicine
DX: J44.0 Chronic obstructive pulmonary disease with (acute) lower respiratory infection (principal); F41.9 Anxiety disorder, unspecified; F17.210 Nicotine dependence, cigarettes, uncomplicated; F10.10 Alcohol abuse, uncomplicated; Z85.118 Personal history of other malignant neoplasm of bronchus and lung; Z66 Do not resuscitate
CPT/HCPCS: 71010; 71275; 80048; 80053; 82550; 82552; 83735; 83880; 84484; 85025; 93005; 94640; 94664; 96374; 99285; J1650; J2060; J2270; J2920; J2930; Q9967